=== PATIENT | male | born 1940 | race Caucasian/White ===

== ENCOUNTER 2021-05-06 16:24 | Emergency (ER) | payer MEDICARE ==
--- NOTE | 2021-05-06 16:32 | ERPHSYRPT ---
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 Patient works on a farm and there was a heavy wagon part that fell onto his left foot causing a blood blister and bruising that has increased over the last 2 days. It is tender but not too terribly tender per his report. He has continued to walk and work on it. He is not on any blood thinning medication. Occurred: days ago (2) Severity of Pain-Max: mild Severity of Pain-Current: mild Modifying Factors: Improves With: nothing Associated Symptoms: none Allergies/Adverse Reactions: No Known Drug Allergies Allergy (Verified 05/06/21 16:45) Home Medications: Lansoprazole [Prevacid] 1 tab PO DAILY 09/20/14 [History] Hx Tetanus, Diphtheria Vaccination/Date Given: Yes Hx Influenza Vaccination/Date Given: No Hx Pneumococcal Vaccination/Date Given: No Travel Risk - International Travel Have you traveled outside of the country in past 3 weeks: No - Coronavirus Screening Are you exhibiting any of the following symptoms?: No Close contact with a COVID-19 positive Pt in past 14-21 Days: No - Review of Systems Constitutional: No Symptoms Eyes: No Symptoms Ears, Nose, & Throat: No Symptoms Respiratory: No Symptoms Cardiac: No Symptoms Abdominal/Gastrointestinal: No Symptoms Genitourinary Symptoms: No Symptoms Musculoskeletal: No Symptoms Skin: Other (Blood blister left first toe) Neurological: No Symptoms Psychological: No Symptoms Endocrine: No Symptoms Hematologic/Lymphatic: No Symptoms Immunological/Allergic: No Symptoms All Other Systems: Reviewed and Negative - Past Medical History Pertinent Past Medical History: No Neurological History: No Pertinent History ENT History: No Pertinent History Cardiac History: No Pertinent History Respiratory History: No Pertinent History Endocrine Medical History: No Pertinent History Musculoskeletal History: No Pertinent History GI Medical History: GERD History: No Pertinent History Psycho-Social History: No Pertinent History Male Reproductive Disorders: No Pertinent History Other Medical History: BROEKN BACK 6 YEARS AGO NO SURGERY DONE - Past Surgical History Past Surgical History: Yes Neuro Surgical History: No Pertinent History Cardiac: No Pertinent History Respiratory: No Pertinent History Gastrointestinal: Appendectomy, Hernia Repair Genitourinary: No Pertinent History Musculoskeletal: No Pertinent History Male Surgical History: No Pertinent History - Social History Smoking Status: Never smoker Exposure to second hand smoke: Yes Drug Use: none Patient Lives Alone: No - Nursing Vital Signs Nursing Vital Signs: Initial Vital Signs Temperature 98.2 F 05/06/21 16:35 Pulse Rate 93 H 05/06/21 16:35 Respiratory Rate 20 05/06/21 16:35 Blood Pressure 184/98 05/06/21 16:35 O2 Sat by Pulse Oximetry 98 05/06/21 16:35 Pain Scale Pain Intensity 3 - Physical Exam General Appearance: no apparent distress, alert Eyes, Ears, Nose, Throat Exam: normal ENT inspection, moist mucous membranes Neck Exam: normal inspection, non-tender, supple, full range of motion Cardiovascular/Respiratory Exam: chest non-tender, no respiratory distress Gastrointestinal/Abdominal Exam: non-tender Back Exam: normal inspection, normal range of motion, No CVA tenderness, No vertebral tenderness Hips Exam: bilateral: non-tender, normal inspection, normal range of motion, no evidence of injury Legs Exam: bilateral leg: non-tender, normal inspection, normal range of motion, no evidence of injury Knees Exam: bilateral knee: non-tender, normal inspection, normal range of motion, no evidence of injury Ankle Exam: bilateral ankle: non-tender, normal inspection, normal range of motion, no evidence of injury Foot Exam: right foot: non-tender, normal inspection, no evidence of injury, left foot: bone tenderness, ecchymosis (Left foot first second and third digits dorsally and first digit plantar surface), soft tissue tenderness (With assoc iated first digit blood blister and plantar ecchymosis), bilateral foot: normal range of motion Neuro/Tendon Exam: normal sensation, normal motor functions, normal tendon func tions Mental Status Exam: alert, oriented x 3, cooperative Skin Exam: other (Serosanguineous filled bulla dorsal aspect left first digit caudal to nailbed) SpO2 Interpretation: normal O2 Delivery: Room Air Procedures - Incision and Drainage Time of Procedure: 16:50 Site: Dorsal aspect left first digit Blade Size: other (18-gauge needle) I & D Procedure: other (Alcohol prep) Ordered Tests: Active Orders 24 hr Category Date Time Status Wound Care STAT Care 05/06/21 16:56 Ordered FOOT (MINIMUM 3 VIEWS) Stat Exams 05/06/21 16:57 Ordered - Progress Progress: improved Counseled pt/family regarding: diagnosis, need for follow-up, rad results - Departure Departure Disposition: Home Clinical Impression: Traumatic bulla Condition: Stable Referrals: BYRON MENDENHALL MD [Primary Care Provider] - Follow up/PCP as directed CHAR SEGURA DPM [ACTIVE STAFF] - Follow up/PCP as directed Additional Instructions: Keep current dressing in place till tomorrow morning. May soak left foot twice a day in warm water and Epson salts. After each soaking apply thin layer of antibiotic ointment of choice and cover bandage. Do not wear shoes that would cause friction to the former blister site. Follow-up with Dr. Mcdonnell (podiatry). Call his office tomorrow morning to make an appointment. Prescriptions: Cephalexin Mh 500 mg [Keflex 500 mg] 500 mg PO TID #21 cap
[2021-05-06 17:39] VITALS: BP 153/92; PULSE 84; O2SAT 96
--- NOTE | 2021-05-07 08:51 | XRAY ---
Indication: Pain following injury. Comparison: August 24, 2016. 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 No new/acute bony, articular, or soft tissue abnormalities.
== END 2021-05-06 17:42 | disposition home or self-care (01) ==
LOC: ED 16:24
DX: R23.8 Other skin changes (principal); M79.672 Pain in left foot; W20.8XXA Other cause of strike by thrown, projected or falling object, initial encounter; Y92.79 Other farm location as the place of occurrence of the external cause; K21.9 Gastro-esophageal reflux disease without esophagitis
CPT/HCPCS: 10160; 73630; 99283